=== PATIENT | male | born 1955 | race Caucasian/White ===

== ENCOUNTER 2018-08-27 18:13 | Outpatient (REF) | payer BC, SELFPAY ==
[2018-08-27 19:30] LABS: Anion Gap 8.9 mmol/L (3-11); BUN 16 mg/dL (7-18); CO2 27.1 mmol/L (21.0-32.0); CREATININE 1.09 mg/dL (0.70-1.30); Calcium 9.1 mg/dL (8.5-10.1); Chloride 104 mmol/L (98-107); Cholesterol 136 mg/dL (50-200); Glucose 90 mg/dL (70-100); HDL Cholesterol 30 mg/dL (40-60); LDL CHOLESTEROL 90 mg/dL (<100); Potassium 4.6 mmol/L (3.5-5.1); Sodium 140 mmol/L (136-145); Triglyceride 126 mg/dL (30-150)
== END 2018-08-27 18:33 ==
LOC: NCHCN 18:13
PROVIDERS: PCP Internal Medicine; Visit Provider Internal Medicine
DX: I25.10 Atherosclerotic heart disease of native coronary artery without angina pectoris (principal); I10 Essential (primary) hypertension; Z00.00 Encounter for general adult medical examination without abnormal findings
CPT/HCPCS: 80048; 80061; 83721

== ENCOUNTER 2019-07-27 11:22 | Outpatient (REF) | payer BC, SELFPAY ==
[2019-07-27 21:58] LABS: Anion Gap 9.2 mmol/L (3-11); BUN 14 mg/dL (7-18); CO2 25.8 mmol/L (21.0-32.0); CREATININE 1.15 mg/dL (0.70-1.30); Calcium 8.9 mg/dL (8.5-10.1); Chloride 104 mmol/L (98-107); Glucose 120 mg/dL (70-100); Potassium 4.6 mmol/L (3.5-5.1); Sodium 139 mmol/L (136-145)
== END 2019-07-27 11:42 ==
LOC: NCHCN 11:22
PROVIDERS: PCP Internal Medicine; Visit Provider Internal Medicine
DX: I10 Essential (primary) hypertension (principal)
CPT/HCPCS: 80048

== ENCOUNTER 2019-11-18 09:17 | Outpatient (REF) | payer OTHER, SELFPAY ==
[2019-11-18 21:47] LABS: Anion Gap 9.4 mmol/L (3-11); BUN 18 mg/dL (7-18); CO2 28.6 mmol/L (21.0-32.0); CREATININE 1.11 mg/dL (0.70-1.30); Calcium 9.3 mg/dL (8.5-10.1); Chloride 103 mmol/L (98-107); Glucose 100 mg/dL (74-106); Potassium 4.4 mmol/L (3.5-5.1); Sodium 141 mmol/L (136-145)
== END 2019-11-18 09:37 ==
LOC: NCHCN 09:17
PROVIDERS: PCP Internal Medicine; Visit Provider Internal Medicine
DX: I10 Essential (primary) hypertension (principal); I25.10 Atherosclerotic heart disease of native coronary artery without angina pectoris
CPT/HCPCS: 80048

== ENCOUNTER 2019-12-28 08:14 | Outpatient (REF) | payer OTHER, SELFPAY ==
[2019-12-28 21:03] LABS: Anion Gap 7.5 mmol/L (3-11); BUN 18 mg/dL (7-18); CO2 29.5 mmol/L (21.0-32.0); CREATININE 1.21 mg/dL (0.70-1.30); Calcium 9.7 mg/dL (8.5-10.1); Chloride 103 mmol/L (98-107); Glucose 105 mg/dL (74-106); Potassium 4.3 mmol/L (3.5-5.1); Sodium 140 mmol/L (136-145)
== END 2019-12-28 08:34 ==
LOC: NCHCN 08:14
PROVIDERS: PCP Internal Medicine; Visit Provider Internal Medicine
DX: I10 Essential (primary) hypertension (principal)
CPT/HCPCS: 80048

== ENCOUNTER 2020-09-19 12:35 | Outpatient (REF) | payer OTHER, SELFPAY ==
[2020-09-19 21:54] LABS: Uric Acid 8.8 mg/dL (3.5-7.2)
== END 2020-09-19 12:55 ==
LOC: NCHCN 12:35
PROVIDERS: PCP Internal Medicine; Visit Provider Internal Medicine
DX: M10.9 Gout, unspecified (principal)
CPT/HCPCS: 84550

== ENCOUNTER 2020-12-19 07:40 | Outpatient (REF) | payer OTHER, SELFPAY ==
[2020-12-19 15:28] LABS: Anion Gap 12.8 mmol/L (3-11); BUN 13 mg/dL (7-18); CO2 24.2 mmol/L (21.0-32.0); CREATININE 1.1 mg/dL (0.70-1.30); Calcium 8.8 mg/dL (8.5-10.1); Calculated LDL 94 mg/dL (<100); Chloride 105 mmol/L (98-107); Cholesterol 164 mg/dL (<200); Glucose 116 mg/dL (74-106); HDL Cholesterol 31 mg/dL (40-60); Potassium 4.1 mmol/L (3.5-5.1); Sodium 142 mmol/L (136-145); Triglyceride 199 mg/dL (<150)
== END 2020-12-19 07:41 | disposition home or self-care (01) ==
LOC: NCHCN 07:40
PROVIDERS: PCP Internal Medicine; Visit Provider Internal Medicine
DX: I10 Essential (primary) hypertension (principal); E78.5 Hyperlipidemia, unspecified; M10.9 Gout, unspecified
CPT/HCPCS: 80048; 80061; 84550

== ENCOUNTER 2021-06-30 20:33 | Outpatient (REF) | payer OTHER, SELFPAY ==
[2021-06-30 15:16] LABS: ALT 38 U/L (16-63); AST 22 U/L (15-37); Albumin 3.9 g/dL (3.4-5.0); Alkaline Phosphatase 96 U/L (46-116); Anion Gap 7.6 mmol/L (3-11); BUN 18 mg/dL (7-18); Bilirubin, Total 0.6 mg/dL (0.2-1.0); CO2 26.4 mmol/L (21.0-32.0); CREATININE 1.1 mg/dL (0.70-1.30); Calcium 8.9 mg/dL (8.5-10.1); Chloride 107 mmol/L (98-107); Glucose 100 mg/dL (74-106); Potassium 4.5 mmol/L (3.5-5.1); Sodium 141 mmol/L (136-145)
[2021-06-30 15:20] LABS: Hemoglobin A1C 5.9 % (<5.7)
== END 2021-06-30 20:34 | disposition home or self-care (01) ==
LOC: NCHCN 20:33
PROVIDERS: PCP Internal Medicine; Visit Provider Internal Medicine
DX: R73.01 Impaired fasting glucose (principal); I10 Essential (primary) hypertension
CPT/HCPCS: 80053; 83036

== ENCOUNTER 2021-08-28 07:42 | Day surgery (SDC) | payer MEDICARE, SELFPAY ==
[2021-08-28] VITALS (7 sets, daily range): BP systolic 106–156; BP diastolic 54–86; PULSE 47–54; RESP 12–20; TEMP 36.2–36.8; O2SAT 94–98; BMI 30.7
[2021-08-28 07:57] LABS: Source Nasal/Nares
[2021-08-28 08:49] LABS: COVID-19 PCR Negative (Negative)
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
--- NOTE | 2021-08-28 09:15 | W.PM.DSUDISC ---
Discharge Plan Disposition Patient Disposition: HOME Condition: Good Discharge Details Attending Provider: Berry Rudolph Primary Care Provider: Lizzie Brady Home Meds and New Rx's Prescriptions: No Action allopurinol 100 mg tablet 100 mg PO DAILY RF: 0 metoprolol succinate [Toprol XL] 50 mg tablet extended release 24 hr 50 mg PO DAILY RF: 0 amlodipine 10 mg tablet 10 mg PO DAILY RF: 0 lisinopril 20 mg tablet 20 mg PO DAILY RF: 0 atorvastatin 20 mg tablet 20 mg PO DAILY RF: 0 omeprazole 20 mg capsule,delayed release(DR/EC) 20 mg PO DAILY RF: 0 colchicine 0.6 mg tablet 0.6 mg PO DAILY RF: 0 aspirin [Aspir-81] 81 mg Tablet,Delayed Release (Dr/Ec) 81 mg PO DAILY RF: 0 Discharge Instructions Additional Instructions: Call with any concerns or problems. Do not smoke, shout or whisper. Expect minor bloody streaking in spit/phlegm. No driving or operating dangerous equipment for 72 hours. Call me if you do not hear from me within 1 week with regard to pathology Referrals: Berry Rudolph MD [ [facility]] - (2 weeks, please call for appointment before patient departs) Activity:: see instruction line above Shower/Bathe:: 24 hours Diet:: As Tolerated
[2021-08-28] MEDS: Lactated Ringers 1,000 ML 80 ML IV (09:43)
--- NOTE | 2021-08-28 10:20 | VOCCOR_PTH ---
PATIENT: Reid Boyd JR LOC: [facility] U#:[id number] AGE/SX: 65/M ROOM: RE08/28/[address]: Berry Rudolph MD : [id number] BED: DIS: 08/28/2021 SPEC #: [id number] RECD: 08/28/21 13:02 STATUS: KELTON RENancie #: [id number] DEBORA: 08/28/21 10:[address]: Berry Rudolph DEPT: Surgical Specimen RECD BY: Hannah Jackson ENTERED: 08/28/21 13:03 SP TYPE: VOCCOR OTHR DR: Lizzie Brady Tissues: 1 - VOCAL CORD Procedures: GROSS AND MICRO LEVEL 4 Comments: [id number]
--- NOTE | 2021-08-28 10:26 | ROE_ITS ---
Operative Note Operative Note DATE OF PROCEDURE: 08/28/21 PRE-OP DIAGNOSIS: Hoarseness, left vocal cord mass PROCEDURE: Microlaryngoscopy with left vocal cord mass biopsy SURGEON: Berry Rudolph ANESTHESIA TYPE: General LMA/ETT Refer to Anesthesia Record ESTIMATED BLOOD LOSS: 2 PATHOLOGY: other (Left vocal cord biopsy) COMPLICATIONS: None Patient was transported to: PACU Patient's condition: stable Indications: Patient with a left vocal cord mass. Options were explained to the family regarding further management. He elected to undergo the above procedure for diagnosis. He is aware that this would not be curative. Risks and benefits as well as the operative and postoperative courses were reviewed. Questions were answered. He wished to proceed. Findings: Left vocal cord fungating mass, friable in nature, extending to and possibly across the anterior commissure, and extending the length of the vocal cord. No vocal cord paralysis. No secondary lesions. There does appear to be some subglottic extension Procedure Description: After obtaining an adequate level of general endotracheal anesthesia the patient was positioned in a supine position and prepped and draped in appropriate fashion. A [place]inger laryngoscope was carefully introduced into the oral cavity and advanced through the oral cavity, into the oropharynx, and then into the larynx, affording excellent visualization of the left vocal cord mass. The laryngoscope was placed into suspension and a operating microscope with a 400 mm lens was moved into position. Cup forceps were then used to remove several biopsies of the left vocal cord mass. These were placed in formalin and sent to pathology. After ensuring adequate hemostasis, the Ho linger laryngoscope was removed and the patient was awakened and by anesthesia and taken to recovery room in stable condition. I was present throughout the entire case.
--- NOTE | 2021-08-28 11:04 | W.ANESPOSTOP ---
Postoperative Evaluation Date, Time and Location Date Performed: 08/28/21 Time Performed: 11:04 Patient Location: PACU Vital Signs Most Recent Imported Vital Signs: Most Recent Vital Signs Temp Pulse Resp BP Pulse Ox 36.8 C 47 L 12 114/66 94 08/28/21 11:01 08/28/21 11:01 08/28/21 11:01 08/28/21 11:01 08/28/21 11:01 Pain Score Most Recent Pain Score: Most Recent Pain Score Pain Level 0 08/28/21 09:14 Assessment Mental Status: Awake (Alert & Oriented to Patient Baseline) Airway and Respiratory Function: Patent airway with normal (patient baseline) respiratory exam Cardiovascular Function: Hemodynamically Stable Hydration Status: Adequately Hydrated Nausea & Vomiting: No Nausea or Vomiting Pain: Pt. Denies Any Pain Peripheral Nerve Block: Patient did not receive a nerve block
== END 2021-08-28 11:48 | disposition home or self-care (01) ==
PROVIDERS: PCP Internal Medicine; Visit Provider Otolaryngology
PROC: 0CJS8ZZ Inspection of Larynx, Via Natural or Artificial Opening Endoscopic (ICD-10-PCS; CPT 31575; principal; 2021-08-28 09:45)
DX: R49.0 Dysphonia (principal)
CPT/HCPCS: 31536; 87635; 88305; J1100; J2405; J2704

== ENCOUNTER 2021-09-11 01:05 | Outpatient (CLI) | payer MEDICARE, SELFPAY ==
[2021-09-11] MEDS: Omnipaque 350 MG/ML 100 ML BTL IJ (11:27)
--- NOTE | 2021-09-11 11:35 | DI.CT_ITS ---
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 TECHNIQUE: Imaging Protocol: Axial CT angiography was performed with multi-slice acquisition and mu lti-planar and/or 3D reconstructions. CONTRAST MATERIAL: Intravenous: Omnipaque 350 Contrast volume:100 mL COMPARISON: No exams were available for comparison FINDINGS: Visualized paranasal sinuses: Mild mucosal thickening in the floor left maxillary sinus. No associat ed fluid level. Sphenoid sinuses and ethmoidal air cells are clear as are the visualized frontal sin uses left side (right frontal sinuses not developed). Mastoid air cells are well aerated. Nasopharynx: Unremarkable Oropharynx: Calcified tonsilliths. There is a 6 x 5 millimeter hypoechoic area region of right tonsi l, possibly small abscess at this level. No regional adenopathy. No retropharyngeal abscess. Hypopharynx: Right vallecula filled mucus. Left valleculae unremarkable. Larynx: Asymmetry on the left side of larynx, anteriorly. This most probably corresponds to the lesi on. Subglottic airway appears unremarkable. Thyroid gland: Normal size. Small calcification noted in the left thyroid lobe. Parotid/submandibular glands: Parotid glands unremarkable. The left submandibular gland is slightly larger than the right but without obvious mass. Lymph nodes: No gross lymphadenopathy in the neck. IMPRESSION: 1. Asymmetric density noted in the anterior left vocal cord, most probably corresponding to the lesio ns described. No obvious lymphadenopathy. 2. Right tonsil area findings as above. May represent small abscess. 3. RADIATION DOSE DELIVERED: 580.95mGy.cm Total DLP DATA REPOSITORY: All CT scans at this facility are submitted to the National Radiology Data Registry (NRDR) Dose Index Registry (DIR) with the [employer] (ACR). RADIATION OPTIMIZATION: All CT scans at this facility use at least one of these dose optimization te chniques: automated exposure control; mA and/or kV adjustment per patient size (includes targeted exa ms where dose is matched to clinical indication); or iterative reconstruction.
== END 2021-09-11 01:25 ==
LOC: DI 01:05
PROVIDERS: PCP Internal Medicine; Visit Provider Otolaryngology
DX: C32.0 Malignant neoplasm of glottis (principal); R93.89 Abnormal findings on diagnostic imaging of other specified body structures
CPT/HCPCS: 70491; 82565; J3490

== ENCOUNTER 2021-09-28 08:18 | Outpatient (REF) | payer MEDICARE, SELFPAY ==
[2021-09-28 14:53] LABS: Calculated LDL 107 mg/dL (<100); Cholesterol 184 mg/dL (<200); HDL Cholesterol 34 mg/dL (40-60); Triglyceride 216 mg/dL (<150)
[2021-09-28 15:03] LABS: Uric Acid 5.7 mg/dL (3.5-7.2)
[2021-09-29 09:23] LABS: PSA, Screening 0.6 ng/mL (0.0-4.5)
== END 2021-09-28 08:19 | disposition home or self-care (01) ==
LOC: NCHCN 08:18
PROVIDERS: PCP Internal Medicine; Visit Provider Internal Medicine
DX: E78.5 Hyperlipidemia, unspecified (principal); M10.9 Gout, unspecified; Z12.5 Encounter for screening for malignant neoplasm of prostate
CPT/HCPCS: 80061; 84153; 84550

== ENCOUNTER 2021-10-31 04:16 | Outpatient (CLI) | payer MEDICARE, SELFPAY ==
[2021-10-31 11:23] LABS: CREATININE 1.1 mg/dL (0.70-1.30)
== END 2021-10-31 04:17 | disposition home or self-care (01) ==
LOC: LBO 04:16
PROVIDERS: PCP Internal Medicine; Visit Provider Preventive Medicine Undersea and Hyperbaric Medicine
DX: C32.9 Malignant neoplasm of larynx, unspecified (principal)
CPT/HCPCS: 36415; 82565

== ENCOUNTER 2021-12-04 01:23 | Outpatient (RCR) | payer MEDICARE, SELFPAY ==
[2021-11-13] MEDS: Normal Saline Flush 10 ML SYR IVP (12:44)
[2021-11-13] MEDS: Heparin 500 UNITS/5 ML SYRINGE IV (12:45)
[2021-11-13 12:49] LABS: Abs Immature Grans 0.03 10^3/uL (0.0-0.06); Absolute Basophil Count 0.06 10^3/uL (0.0-0.2); Absolute Eosinophil Count 0.24 10^3/uL (0.0-0.7); Absolute Monocyte Count 0.83 10^3/uL (0.1-0.8); Basophils % 0.6; Eosinophils % 2.5; HCT 43.3 % (40.0-50.0); HGB 14.5 g/dL (13.5-17.5); Immature Grans % 0.3; Lymphocytes % 25.6; MCH 30.3 pg (27.0-33.0); MCHC 33.5 % (32.0-36.0); MCV 90.4 fL (80-95); MPV 9.7 fL (8.0-11.0); Monocytes % 8.5; Neutrophils % 62.5; Nucleated RBC 0 %; Platelet Count 283 10^3/uL (130-400); RBC 4.79 10^6/uL (4.36-5.78); RDW 14.1 % (11.8-14.1); RDW-SD 47.5 fL; WBC 9.76 10^3/uL (4.4-10.8)
[2021-11-13 13:02] LABS: ALT 56 U/L (16-63); AST 28 U/L (15-37); Albumin 3.7 g/dL (3.4-5.0); Alkaline Phosphatase 88 U/L (46-116); Anion Gap 9.4 mmol/L (3-11); BUN 14 mg/dL (7-18); Bilirubin, Total 0.6 mg/dL (0.2-1.0); CO2 24.6 mmol/L (21.0-32.0); Calcium 8.1 mg/dL (8.5-10.1); Chloride 106 mmol/L (98-107); Glucose 97 mg/dL (74-106); Magnesium 1.8 mg/dL (1.8-2.4); Potassium 3.8 mmol/L (3.5-5.1); Sodium 140 mmol/L (136-145)
[2021-11-20] MEDS: Normal Saline Flush 10 ML SYR IVP (07:34)
[2021-11-20 07:46] LABS: Abs Immature Grans 0.06 10^3/uL (0.0-0.06); Absolute Basophil Count 0.07 10^3/uL (0.0-0.2); Absolute Eosinophil Count 0.37 10^3/uL (0.0-0.7); Absolute Lymphocyte Count 2.63 10^3/uL (1.2-3.4); Basophils % 0.6; Eosinophils % 3.2; HGB 14.2 g/dL (13.5-17.5); Immature Grans % 0.5; Lymphocytes % 22.6; MCH 30.7 pg (27.0-33.0); MCHC 33.8 % (32.0-36.0); MCV 90.9 fL (80-95); MPV 9.5 fL (8.0-11.0); Monocytes % 10.7; Neutrophils % 62.4; Nucleated RBC 0 %; Platelet Count 294 10^3/uL (130-400); RBC 4.62 10^6/uL (4.36-5.78); RDW 14.3 % (11.8-14.1); RDW-SD 47.8 fL; WBC 11.64 10^3/uL (4.4-10.8)
[2021-11-20 07:48] LABS: Absolute Monocyte Count 1.25 10^3/uL (0.1-0.8); Absolute Neutrophil Count 7.26 10^3/uL (1.2-6.7)
[2021-11-20 07:58] LABS: ALT 73 U/L (16-63); AST 31 U/L (15-37); Albumin 3.6 g/dL (3.4-5.0); Alkaline Phosphatase 89 U/L (46-116); Anion Gap 7.2 mmol/L (3-11); BUN 15 mg/dL (7-18); Bilirubin, Total 0.5 mg/dL (0.2-1.0); CO2 28.8 mmol/L (21.0-32.0); CREATININE 1.1 mg/dL (0.70-1.30); Calcium 8.5 mg/dL (8.5-10.1); Chloride 103 mmol/L (98-107); Glucose 99 mg/dL (74-106); Magnesium 2.1 mg/dL (1.8-2.4); Potassium 4.2 mmol/L (3.5-5.1); Sodium 139 mmol/L (136-145); Total Protein 6.6 g/dL (6.4-8.2)
[2021-11-27] MEDS: Normal Saline Flush 10 ML SYR IVP (08:06)
[2021-11-27 08:07] LABS: Abs Immature Grans 0.06 10^3/uL (0.0-0.06); Absolute Basophil Count 0.03 10^3/uL (0.0-0.2); Absolute Eosinophil Count 0.21 10^3/uL (0.0-0.7); Absolute Lymphocyte Count 1.29 10^3/uL (1.2-3.4); Absolute Monocyte Count 0.81 10^3/uL (0.1-0.8); Basophils % 0.3; Eosinophils % 2.1; HCT 41.3 % (40.0-50.0); HGB 13.9 g/dL (13.5-17.5); Immature Grans % 0.6; MCH 30.3 pg (27.0-33.0); MCHC 33.7 % (32.0-36.0); MCV 90.2 fL (80-95); MPV 9.4 fL (8.0-11.0); Monocytes % 8.2; Neutrophils % 75.8; Nucleated RBC 0 %; Platelet Count 235 10^3/uL (130-400); RBC 4.58 10^6/uL (4.36-5.78); RDW 14.4 % (11.8-14.1); RDW-SD 46.5 fL
[2021-11-27 08:20] LABS: ALT 83 U/L (16-63); AST 28 U/L (15-37); Albumin 3.5 g/dL (3.4-5.0); Alkaline Phosphatase 85 U/L (46-116); BUN 17 mg/dL (7-18); Bilirubin, Total 0.4 mg/dL (0.2-1.0); Calcium 8.6 mg/dL (8.5-10.1); Chloride 104 mmol/L (98-107); Glucose 113 mg/dL (74-106); Magnesium 1.9 mg/dL (1.8-2.4); Potassium 4.4 mmol/L (3.5-5.1); Sodium 138 mmol/L (136-145); Total Protein 6.5 g/dL (6.4-8.2)
[2021-12-04] MEDS: Normal Saline Flush 10 ML SYR IVP (07:43)
[2021-12-04 08:13] LABS: Abs Immature Grans 0.03 10^3/uL (0.0-0.06); Absolute Basophil Count 0.05 10^3/uL (0.0-0.2); Absolute Eosinophil Count 0.12 10^3/uL (0.0-0.7); Absolute Monocyte Count 0.75 10^3/uL (0.1-0.8); Absolute Neutrophil Count 4.95 10^3/uL (1.2-6.7); Basophils % 0.7; Eosinophils % 1.7; HCT 40.7 % (40.0-50.0); HGB 13.6 g/dL (13.5-17.5); Immature Grans % 0.4; Lymphocytes % 14.5; MCH 30.7 pg (27.0-33.0); MCHC 33.4 % (32.0-36.0); MCV 91.9 fL (80-95); MPV 9.3 fL (8.0-11.0); Monocytes % 10.9; Neutrophils % 71.8; Nucleated RBC 0 %; Platelet Count 211 10^3/uL (130-400); RBC 4.43 10^6/uL (4.36-5.78); RDW 14.6 % (11.8-14.1); RDW-SD 48.3 fL
[2021-12-04 08:46] LABS: ALT 75 U/L (16-63); AST 24 U/L (15-37); Albumin 3.6 g/dL (3.4-5.0); Alkaline Phosphatase 78 U/L (46-116); BUN 20 mg/dL (7-18); Bilirubin, Total 0.5 mg/dL (0.2-1.0); Calcium 8.7 mg/dL (8.5-10.1); Chloride 103 mmol/L (98-107); Glucose 109 mg/dL (74-106); Magnesium 2.1 mg/dL (1.8-2.4); Potassium 4.3 mmol/L (3.5-5.1); Sodium 137 mmol/L (136-145); Total Protein 6.8 g/dL (6.4-8.2)
== END 2021-12-04 23:59 | disposition home or self-care (01) ==
LOC: INF 01:23
PROVIDERS: Internal Medicine Hematology & Oncology; PCP Internal Medicine; Visit Provider Nurse Practitioner Family
DX: C32.9 Malignant neoplasm of larynx, unspecified (principal); Z45.2 Encounter for adjustment and management of vascular access device
CPT/HCPCS: 36591; 80053; 83735; 85025

== ENCOUNTER 2021-12-25 02:27 | Outpatient (RCR) | payer MEDICARE, SELFPAY ==
[2021-12-11] MEDS: Normal Saline Flush 10 ML SYR IVP (08:30)
[2021-12-11 08:40] LABS: Abs Immature Grans 0.01 10^3/uL (0.0-0.06); Absolute Basophil Count 0.02 10^3/uL (0.0-0.2); Absolute Eosinophil Count 0.12 10^3/uL (0.0-0.7); Absolute Lymphocyte Count 0.72 10^3/uL (1.2-3.4); Absolute Monocyte Count 0.51 10^3/uL (0.1-0.8); Absolute Neutrophil Count 3.54 10^3/uL (1.2-6.7); Basophils % 0.4; Eosinophils % 2.4; HCT 36.7 % (40.0-50.0); HGB 12.6 g/dL (13.5-17.5); Immature Grans % 0.2; Lymphocytes % 14.6; MCH 31.2 pg (27.0-33.0); MCHC 34.3 % (32.0-36.0); MCV 90.8 fL (80-95); MPV 8.9 fL (8.0-11.0); Monocytes % 10.4; Nucleated RBC 0 %; Platelet Count 150 10^3/uL (130-400); RBC 4.04 10^6/uL (4.36-5.78); RDW 14.6 % (11.8-14.1); WBC 4.92 10^3/uL (4.4-10.8)
[2021-12-11 09:00] LABS: ALT 67 U/L (16-63); AST 24 U/L (15-37); Albumin 3.6 g/dL (3.4-5.0); Alkaline Phosphatase 81 U/L (46-116); Anion Gap 8.9 mmol/L (3-11); BUN 18 mg/dL (7-18); Bilirubin, Total 0.5 mg/dL (0.2-1.0); CO2 27.1 mmol/L (21.0-32.0); CREATININE 1.1 mg/dL (0.70-1.30); Calcium 8.7 mg/dL (8.5-10.1); Chloride 104 mmol/L (98-107); Glucose 104 mg/dL (74-106); Magnesium 2.1 mg/dL (1.8-2.4); Potassium 4.3 mmol/L (3.5-5.1); Sodium 140 mmol/L (136-145); Total Protein 6.7 g/dL (6.4-8.2)
[2021-12-18 08:42] LABS: Abs Immature Grans 0.02 10^3/uL (0.0-0.06); Absolute Basophil Count 0.01 10^3/uL (0.0-0.2); Absolute Eosinophil Count 0.06 10^3/uL (0.0-0.7); Absolute Lymphocyte Count 0.56 10^3/uL (1.2-3.4); Absolute Neutrophil Count 2.43 10^3/uL (1.2-6.7); Basophils % 0.3; Eosinophils % 1.7; HCT 36.8 % (40.0-50.0); HGB 12.5 g/dL (13.5-17.5); Immature Grans % 0.6; Lymphocytes % 16.1; MCH 30.9 pg (27.0-33.0); MCV 91.1 fL (80-95); MPV 8.7 fL (8.0-11.0); Monocytes % 11.5; Neutrophils % 69.8; Nucleated RBC 0 %; Platelet Count 144 10^3/uL (130-400); RBC 4.04 10^6/uL (4.36-5.78); RDW 14.5 % (11.8-14.1); RDW-SD 46.9 fL; WBC 3.48 10^3/uL (4.4-10.8)
[2021-12-18] MEDS: Normal Saline Flush 10 ML SYR IVP (08:44)
[2021-12-18 09:02] LABS: ALT 85 U/L (16-63); AST 30 U/L (15-37); Albumin 3.6 g/dL (3.4-5.0); Alkaline Phosphatase 79 U/L (46-116); Anion Gap 7.8 mmol/L (3-11); BUN 17 mg/dL (7-18); Bilirubin, Total 0.5 mg/dL (0.2-1.0); CO2 28.2 mmol/L (21.0-32.0); CREATININE 1.1 mg/dL (0.70-1.30); Calcium 8.4 mg/dL (8.5-10.1); Chloride 101 mmol/L (98-107); Glucose 100 mg/dL (74-106); Magnesium 1.8 mg/dL (1.8-2.4); Potassium 4.1 mmol/L (3.5-5.1); Sodium 137 mmol/L (136-145); Total Protein 6.8 g/dL (6.4-8.2)
[2021-12-25] MEDS: Normal Saline Flush 10 ML SYR IVP (09:00)
[2021-12-25 09:19] LABS: Abs Immature Grans 0.02 10^3/uL (0.0-0.06); Absolute Basophil Count 0.02 10^3/uL (0.0-0.2); Absolute Eosinophil Count 0.03 10^3/uL (0.0-0.7); Absolute Lymphocyte Count 0.39 10^3/uL (1.2-3.4); Absolute Monocyte Count 0.43 10^3/uL (0.1-0.8); Absolute Neutrophil Count 1.84 10^3/uL (1.2-6.7); Basophils % 0.7; Eosinophils % 1.1; HCT 35.2 % (40.0-50.0); HGB 11.9 g/dL (13.5-17.5); Immature Grans % 0.7; Lymphocytes % 14.3; MCH 31.5 pg (27.0-33.0); MCHC 33.8 % (32.0-36.0); MCV 93.1 fL (80-95); MPV 8.7 fL (8.0-11.0); Monocytes % 15.8; Neutrophils % 67.4; Nucleated RBC 0 %; Platelet Count 163 10^3/uL (130-400); RBC 3.78 10^6/uL (4.36-5.78); RDW 14.7 % (11.8-14.1); RDW-SD 48.4 fL; WBC 2.73 10^3/uL (4.4-10.8)
[2021-12-25 09:31] LABS: ALT 115 U/L (16-63); AST 37 U/L (15-37); Albumin 3.7 g/dL (3.4-5.0); Alkaline Phosphatase 86 U/L (46-116); Anion Gap 8.4 mmol/L (3-11); BUN 23 mg/dL (7-18); Bilirubin, Total 0.4 mg/dL (0.2-1.0); CO2 26.6 mmol/L (21.0-32.0); CREATININE 1.3 mg/dL (0.70-1.30); Calcium 8.6 mg/dL (8.5-10.1); Chloride 105 mmol/L (98-107); Glucose 100 mg/dL (74-106); Potassium 4.3 mmol/L (3.5-5.1); Sodium 140 mmol/L (136-145); Total Protein 6.7 g/dL (6.4-8.2)
== END 2022-01-04 23:59 | disposition home or self-care (01) ==
LOC: INF 02:27
PROVIDERS: Internal Medicine Hematology & Oncology; PCP Internal Medicine; Visit Provider Nurse Practitioner Family
DX: C32.9 Malignant neoplasm of larynx, unspecified (principal); Z45.2 Encounter for adjustment and management of vascular access device
CPT/HCPCS: 36591; 80053; 83735; 85025

== ENCOUNTER 2022-01-19 00:41 | Outpatient (RCR) | payer MEDICARE, SELFPAY ==
[2022-01-05] MEDS: Normal Saline Flush 10 ML SYR IVP (09:51)
[2022-01-05 09:58] LABS: Abs Immature Grans 0.03 10^3/uL (0.0-0.06); Absolute Basophil Count 0.04 10^3/uL (0.0-0.2); Absolute Eosinophil Count 0.01 10^3/uL (0.0-0.7); Absolute Monocyte Count 0.53 10^3/uL (0.1-0.8); Absolute Neutrophil Count 4.18 10^3/uL (1.2-6.7); Basophils % 0.8; Eosinophils % 0.2; HCT 32.3 % (40.0-50.0); HGB 11.1 g/dL (13.5-17.5); Immature Grans % 0.6; Lymphocytes % 7.7; MCHC 34.4 % (32.0-36.0); MCV 93.1 fL (80-95); MPV 8.8 fL (8.0-11.0); Monocytes % 10.2; Neutrophils % 80.5; Nucleated RBC 0 %; Platelet Count 148 10^3/uL (130-400); RBC 3.47 10^6/uL (4.36-5.78); RDW 16.3 % (11.8-14.1); RDW-SD 52.2 fL; WBC 5.19 10^3/uL (4.4-10.8)
[2022-01-05 10:11] LABS: ALT 165 U/L (16-63); AST 53 U/L (15-37); Albumin 3.5 g/dL (3.4-5.0); Alkaline Phosphatase 83 U/L (46-116); Anion Gap 11.6 mmol/L (3-11); BUN 24 mg/dL (7-18); Bilirubin, Total 0.3 mg/dL (0.2-1.0); CO2 25.4 mmol/L (21.0-32.0); CREATININE 1.4 mg/dL (0.70-1.30); Calcium 8.4 mg/dL (8.5-10.1); Chloride 105 mmol/L (98-107); Glucose 131 mg/dL (74-106); Magnesium 1.5 mg/dL (1.8-2.4); Potassium 3.4 mmol/L (3.5-5.1); Sodium 142 mmol/L (136-145); Total Protein 6.4 g/dL (6.4-8.2)
[2022-01-15] MEDS: Normal Saline Flush 10 ML SYR IVP (11:31)
[2022-01-15 11:52] LABS: ALT 118 U/L (16-63); AST 32 U/L (15-37); Albumin 3.5 g/dL (3.4-5.0); Alkaline Phosphatase 95 U/L (46-116); Anion Gap 8.5 mmol/L (3-11); BUN 19 mg/dL (7-18); Bilirubin, Total 0.4 mg/dL (0.2-1.0); CO2 27.5 mmol/L (21.0-32.0); Calcium 8.6 mg/dL (8.5-10.1); Chloride 103 mmol/L (98-107); Glucose 93 mg/dL (74-106); Magnesium 1.7 mg/dL (1.8-2.4); Potassium 3.7 mmol/L (3.5-5.1); Sodium 139 mmol/L (136-145); Total Protein 6.6 g/dL (6.4-8.2)
[2022-01-19 10:44] LABS: Abs Immature Grans 0.01 10^3/uL (0.0-0.06); Absolute Basophil Count 0.02 10^3/uL (0.0-0.2); Absolute Eosinophil Count 0.08 10^3/uL (0.0-0.7); Absolute Lymphocyte Count 0.53 10^3/uL (1.2-3.4); Absolute Neutrophil Count 2.55 10^3/uL (1.2-6.7); Basophils % 0.5; Eosinophils % 2.1; HCT 30.9 % (40.0-50.0); HGB 10.7 g/dL (13.5-17.5); Immature Grans % 0.3; MCH 32.1 pg (27.0-33.0); MCHC 34.6 % (32.0-36.0); MCV 92.8 fL (80-95); MPV 8.8 fL (8.0-11.0); Monocytes % 15.8; Neutrophils % 67.3; Platelet Count 157 10^3/uL (130-400); RBC 3.33 10^6/uL (4.36-5.78); RDW 18.8 % (11.8-14.1); RDW-SD 62.3 fL; WBC 3.79 10^3/uL (4.4-10.8)
[2022-01-19 10:57] LABS: ALT 113 U/L (16-63); AST 46 U/L (15-37); Albumin 3.5 g/dL (3.4-5.0); Alkaline Phosphatase 108 U/L (46-116); Anion Gap 9.6 mmol/L (3-11); BUN 21 mg/dL (7-18); Bilirubin, Total 0.4 mg/dL (0.2-1.0); CO2 25.4 mmol/L (21.0-32.0); Calcium 8.2 mg/dL (8.5-10.1); Chloride 106 mmol/L (98-107); Glucose 111 mg/dL (74-106); Magnesium 1.3 mg/dL (1.8-2.4); Potassium 3.6 mmol/L (3.5-5.1); Sodium 141 mmol/L (136-145); Total Protein 6.5 g/dL (6.4-8.2)
[2022-01-19] MEDS: Normal Saline Flush 10 ML SYR IVP (16:49)
== END 2022-02-03 23:59 | disposition home or self-care (01) ==
LOC: INF 00:41
PROVIDERS: Internal Medicine Hematology & Oncology; PCP Internal Medicine; Visit Provider Nurse Practitioner Family
DX: C32.9 Malignant neoplasm of larynx, unspecified (principal); Z45.2 Encounter for adjustment and management of vascular access device
CPT/HCPCS: 36591; 80053; 83735; 85025

== ENCOUNTER 2022-02-12 01:06 | Outpatient (RCR) | payer MEDICARE, SELFPAY ==
[2022-02-12] MEDS: Heparin 500 UNITS/5 ML SYRINGE IV (13:28)
[2022-02-12] MEDS: Normal Saline Flush 10 ML SYR IVP (13:28)
[2022-02-12 13:48] LABS: Abs Immature Grans 0.02 10^3/uL (0.0-0.06); Absolute Basophil Count 0.05 10^3/uL (0.0-0.2); Absolute Eosinophil Count 0.14 10^3/uL (0.0-0.7); Absolute Lymphocyte Count 0.98 10^3/uL (1.2-3.4); Absolute Monocyte Count 0.71 10^3/uL (0.1-0.8); Absolute Neutrophil Count 2.68 10^3/uL (1.2-6.7); Basophils % 1.1; Eosinophils % 3.1; HCT 32.6 % (40.0-50.0); Immature Grans % 0.4; Lymphocytes % 21.4; MCH 33.4 pg (27.0-33.0); MCHC 33.7 % (32.0-36.0); MCV 99 fL (80-95); MPV 9.4 fL (8.0-11.0); Monocytes % 15.5; Neutrophils % 58.5; Platelet Count 251 10^3/uL (130-400); RBC 3.29 10^6/uL (4.36-5.78); RDW 20.6 % (11.8-14.1); RDW-SD 73.1 fL; WBC 4.58 10^3/uL (4.4-10.8)
[2022-02-12 13:52] LABS: ALT 42 U/L (16-63); AST 18 U/L (15-37); Albumin 3.5 g/dL (3.4-5.0); Alkaline Phosphatase 109 U/L (46-116); Anion Gap 7.7 mmol/L (3-11); BUN 17 mg/dL (7-18); Bilirubin, Total 0.3 mg/dL (0.2-1.0); CO2 25.3 mmol/L (21.0-32.0); CREATININE 1.1 mg/dL (0.70-1.30); Calcium 8.2 mg/dL (8.5-10.1); Chloride 107 mmol/L (98-107); Glucose 112 mg/dL (74-106); Magnesium 1.6 mg/dL (1.8-2.4); Potassium 3.8 mmol/L (3.5-5.1); Sodium 140 mmol/L (136-145); Total Protein 6.8 g/dL (6.4-8.2)
[2022-02-12 13:57] LABS: Anisocytosis 2+; Diff Comment RBC Morph Reviewed
== END 2022-03-06 23:59 | disposition home or self-care (01) ==
LOC: INF 01:06
PROVIDERS: Internal Medicine Hematology & Oncology; PCP Internal Medicine; Visit Provider Nurse Practitioner Family
DX: C32.9 Malignant neoplasm of larynx, unspecified (principal); Z45.2 Encounter for adjustment and management of vascular access device
CPT/HCPCS: 36591; 80053; 83735; 85025

== ENCOUNTER 2022-03-02 01:29 | Outpatient (CLI) | payer MEDICARE, SELFPAY ==
[2022-03-02 11:56] LABS: Source Nasal/Nares
[2022-03-02 14:42] LABS: COVID-19 PCR Negative (Negative)
== END 2022-03-02 01:30 | disposition home or self-care (01) ==
LOC: LBO 01:29
PROVIDERS: Otolaryngology; PCP Internal Medicine; Visit Provider Speech-Language Pathologist
DX: Z20.822 Contact with and (suspected) exposure to COVID-19 (principal); Z01.818 Encounter for other preprocedural examination
CPT/HCPCS: 87635; U0005

== ENCOUNTER → 2022-03-06 01:41 | Outpatient (CLI) | payer MEDICARE, SELFPAY ==
--- NOTE | 2022-03-06 10:30 | DI.RAD_ITS ---
Exam(s) RF MODIFIED SPEECH BA SWALLOW TECHNIQUE: Modified barium swallow was performed in conjunction with speech pathology. CONTRAST MATERIAL: Oral barium Oral water soluble contrast was administered. COMPARISON: No exams were available for comparison FINDINGS: Note that this is not a dedicated esophagram, distal esophagus not evaluated. There is no evidence of aspiration or penetration of thick or thin liquids, barium coated apple sauce , cottage cheese or cookies. Speech pathology report to follow. . . . IMPRESSION: No evidence of aspiration or penetration. RADIATION DOSE DELIVERED: ann Burger=14.9 mGy Total fluoroscopy time 1 minutes 26 seconds
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
[2022-03-06] MEDS: Barium Sulfate 700 MG TAB PO (11:15)
[2022-03-06] MEDS: Barium Sulfate 81% w/w for Oral Suspension 148 GM BTL PO (11:15)
== END ==
PROVIDERS: PCP Internal Medicine; Visit Provider Speech-Language Pathologist
DX: C32.9 Malignant neoplasm of larynx, unspecified (principal)
CPT/HCPCS: 92526; 74221

== ENCOUNTER 2022-07-09 04:45 | Outpatient (CLI) | payer MEDICARE, SELFPAY ==
[2022-07-09 10:36] LABS: Abs Immature Grans 0.02 10^3/uL (0.0-0.06); Absolute Basophil Count 0.05 10^3/uL (0.0-0.2); Absolute Eosinophil Count 0.29 10^3/uL (0.0-0.7); Absolute Lymphocyte Count 1.35 10^3/uL (1.2-3.4); Absolute Monocyte Count 0.71 10^3/uL (0.1-0.8); Absolute Neutrophil Count 3.84 10^3/uL (1.2-6.7); Basophils % 0.8; Eosinophils % 4.6; HCT 38.4 % (40.0-50.0); Immature Grans % 0.3; Lymphocytes % 21.6; MCH 31.4 pg (27.0-33.0); MCHC 33.9 % (32.0-36.0); MCV 93 fL (80-95); MPV 9.2 fL (8.0-11.0); Monocytes % 11.3; Neutrophils % 61.4; Platelet Count 248 10^3/uL (130-400); RBC 4.14 10^6/uL (4.36-5.78); RDW 14.3 % (11.8-14.1); RDW-SD 48.6 fL; WBC 6.26 10^3/uL (4.4-10.8)
[2022-07-09 11:43] LABS: ALT 33 U/L (16-63); AST 22 U/L (15-37); Albumin 3.9 g/dL (3.4-5.0); Alkaline Phosphatase 109 U/L (46-116); Anion Gap 8.2 mmol/L (3-11); BUN 22 mg/dL (7-18); Bilirubin, Total 0.8 mg/dL (0.2-1.0); CO2 25.8 mmol/L (21.0-32.0); CREATININE 1.2 mg/dL (0.70-1.30); Calcium 9.1 mg/dL (8.5-10.1); Chloride 104 mmol/L (98-107); Estimated GFR 65.87 (mL/min/1.73m2); Glucose 104 mg/dL (74-106); Magnesium 1.9 mg/dL (1.8-2.4); Potassium 4.4 mmol/L (3.5-5.1); Sodium 138 mmol/L (136-145); TSH 11.28 uIU/mL (0.36-3.74); Total Protein 7.4 g/dL (6.4-8.2)
== END 2022-07-09 04:46 | disposition home or self-care (01) ==
LOC: LBO 04:45
PROVIDERS: PCP Internal Medicine; Visit Provider Internal Medicine Hematology & Oncology
DX: C32.0 Malignant neoplasm of glottis (principal); E83.42 Hypomagnesemia; I10 Essential (primary) hypertension
CPT/HCPCS: 36415; 80053; 83735; 84443; 85025

== ENCOUNTER 2022-10-29 02:52 | Outpatient (CLI) | payer MEDICARE, SELFPAY ==
[2022-10-29 11:48] LABS: Abs Immature Grans 0.02 10^3/uL (0.0-0.06); Absolute Basophil Count 0.06 10^3/uL (0.0-0.2); Absolute Eosinophil Count 0.14 10^3/uL (0.0-0.7); Absolute Lymphocyte Count 1.25 10^3/uL (1.2-3.4); Absolute Monocyte Count 0.71 10^3/uL (0.1-0.8); Absolute Neutrophil Count 4.15 10^3/uL (1.2-6.7); Basophils % 0.9; Eosinophils % 2.2; HCT 39.7 % (40.0-50.0); HGB 13.6 g/dL (13.5-17.5); Immature Grans % 0.3; Lymphocytes % 19.7; MCH 32.5 pg (27.0-33.0); MCHC 34.3 % (32.0-36.0); MCV 95 fL (80-95); MPV 9.2 fL (8.0-11.0); Monocytes % 11.2; Neutrophils % 65.7; Platelet Count 244 10^3/uL (130-400); RBC 4.18 10^6/uL (4.36-5.78); RDW 13.5 % (11.8-14.1); RDW-SD 47.4 fL; WBC 6.33 10^3/uL (4.4-10.8)
[2022-10-29 12:29] LABS: ALT 46 U/L (16-63); AST 26 U/L (15-37); Alkaline Phosphatase 80 U/L (46-116); Anion Gap 8.3 mmol/L (3-11); BUN 20 mg/dL (7-18); Bilirubin, Total 0.5 mg/dL (0.2-1.0); CO2 26.7 mmol/L (21.0-32.0); CREATININE 1.3 mg/dL (0.70-1.30); Calcium 9.3 mg/dL (8.5-10.1); Chloride 106 mmol/L (98-107); Estimated GFR 59.47 (mL/min/1.73m2); Glucose 105 mg/dL (74-106); Magnesium 1.8 mg/dL (1.8-2.4); Potassium 4.7 mmol/L (3.5-5.1); Sodium 141 mmol/L (136-145); TSH 6.03 uIU/mL (0.36-3.74); Total Protein 7.1 g/dL (6.4-8.2)
== END 2022-10-29 02:53 | disposition home or self-care (01) ==
PROVIDERS: PCP Internal Medicine; Visit Provider Internal Medicine Hematology & Oncology
DX: C32.0 Malignant neoplasm of glottis (principal); E83.42 Hypomagnesemia; Z79.899 Other long term (current) drug therapy; I10 Essential (primary) hypertension
CPT/HCPCS: 36415; 80053; 83735; 84443; 85025

== ENCOUNTER 2022-12-17 02:03 | Outpatient (CLI) | payer MEDICARE, SELFPAY ==
[2022-12-17 14:30] LABS: CREATININE 1.2 mg/dL (0.70-1.30); Estimated GFR 65.46 (mL/min/1.73m2)
[2022-12-17] MEDS: Normal Saline - Diluent 50 ML VIAL IJ (14:52)
[2022-12-17] MEDS: Omnipaque 350 MG/ML 500 ML BTL-Imaging package IJ (14:53)
--- NOTE | 2022-12-17 15:00 | DI.CT_ITS ---
Exam(s) CT NECK CHEST W EXAM: CT NECK CHEST W CLINICAL HISTORY: SCC OF LT VOCAL CORD, C32.0, ASSESS TX RESPONSE S/P CHEMOTHERAPY. TECHNIQUE: Imaging Protocol: Axial computed tomography images with coronal and sagittal reformatted images were created and reviewed. CONTRAST MATERIAL: Intravenous: Contrast Contrast volume:structured data in mlmL COMPARISON: CT CT NECK W from 09/11/2021 FINDINGS: Orbits and orbital soft tissues: Within normal limits. Visualized paranasal sinuses: Within normal limits. Nasopharynx: Within normal limits. Oropharynx: Within normal limits. Hypopharynx: Within normal limits. Larynx: There has been significant decrease in size of the focal cords since 09/11/2021. They have a normal configuration. No evidence of a recurrent mass is seen at this time. Retropharyngeal space: Within normal limits. Parotids/submandibular: Within normal limits. Thyroid gland: Within normal limits. Lymphadenopathy: There is scattered lymph nodes seen along the level one to level three all measurin g less than 8 mm in short axis diameter which are physiologic in nature. Trachea: Within normal limits. Bones: Within normal limits for the patient's age. Carotids/Jugular: Within normal limits. Atherosclerosis is present. Soft tissues: Within normal limits. Tracheobronchial tree: Patent where visualized. Pulmonary parenchyma: No consolidation or dominant measurable mass. No architectural distortion. Mediastinum and Emely: There are mildly enlarged lymph nodes seen in the right hilum. The largest elvis sures 1.8 cm. The esophagus is unremarkable. Thyroid gland: Unremarkable. Pleura: No effusion or pneumothorax. Heart: The heart is not dilated. Moderate coronary artery calcification is present. No pericardial e ffusion. Aorta: Thoracic aorta non-dilated. Atherosclerosis is present. There is no dissection present. Pulmonary arteries: The segmental and subsegmental pulmonary arteries are inadequately opacified for evaluation of pulmonary emboli. No central pulmonary embolus is present. Upper abdomen: Unremarkable. Lymph nodes: Within normal limits. Bones: Within normal limits for the patient's age. No aggressive osseous lesions. Soft tissues: Mild gynecomastia. IMPRESSION: 1. Mildly enlarged mediastinal lymph nodes. 2. No pulmonary nodules. 3. No evidence of residual or recurrent vocal cord mass. RADIATION DOSE DELIVERED: 1,503.22mGy.cm Total DLP DATA REPOSITORY: All CT scans at this facility are submitted to the National Radiology Data Registry (NRDR) Dose Index Registry (DIR) with the [employer] (ACR). RADIATION OPTIMIZATION: All CT scans at this facility use at least one of these dose optimization te chniques: automated exposure control; mA and/or kV adjustment per patient size (includes targeted exa ms where dose is matched to clinical indication); or iterative reconstruction.
== END 2022-12-17 02:23 ==
LOC: DI 02:03
PROVIDERS: PCP Internal Medicine; Visit Provider Preventive Medicine Undersea and Hyperbaric Medicine
DX: Z01.812 Encounter for preprocedural laboratory examination (principal); C32.0 Malignant neoplasm of glottis; R59.0 Localized enlarged lymph nodes; Z92.21 Personal history of antineoplastic chemotherapy; Z92.3 Personal history of irradiation
CPT/HCPCS: 70491; 71260; 82565

== ENCOUNTER 2022-12-24 03:56 | Outpatient (CLI) | payer MEDICARE, SELFPAY ==
[2022-12-24 10:07] LABS: Abs Immature Grans 0.02 10^3/uL (0.0-0.06); Absolute Basophil Count 0.05 10^3/uL (0.0-0.2); Absolute Eosinophil Count 0.19 10^3/uL (0.0-0.7); Absolute Lymphocyte Count 1.03 10^3/uL (1.2-3.4); Absolute Monocyte Count 0.56 10^3/uL (0.1-0.8); Absolute Neutrophil Count 3.26 10^3/uL (1.2-6.7); Eosinophils % 3.7; HCT 40.2 % (40.0-50.0); HGB 13.9 g/dL (13.5-17.5); Immature Grans % 0.4; Lymphocytes % 20.2; MCH 31.7 pg (27.0-33.0); MCHC 34.6 % (32.0-36.0); MCV 92 fL (80-95); MPV 8.6 fL (8.0-11.0); Neutrophils % 63.7; Platelet Count 238 10^3/uL (130-400); RBC 4.38 10^6/uL (4.36-5.78); RDW-SD 47.8 fL; WBC 5.11 10^3/uL (4.4-10.8)
[2022-12-24 10:37] LABS: ALT 50 U/L (16-63); AST 23 U/L (15-37); Albumin 3.8 g/dL (3.4-5.0); Alkaline Phosphatase 86 U/L (46-116); Anion Gap 9.3 mmol/L (3-11); BUN 16 mg/dL (7-18); Bilirubin, Total 0.5 mg/dL (0.2-1.0); CO2 25.7 mmol/L (21.0-32.0); CREATININE 1.2 mg/dL (0.70-1.30); Calcium 8.5 mg/dL (8.5-10.1); Chloride 107 mmol/L (98-107); Estimated GFR 65.46 (mL/min/1.73m2); Glucose 122 mg/dL (74-106); Magnesium 1.8 mg/dL (1.8-2.4); Potassium 4.1 mmol/L (3.5-5.1); Sodium 142 mmol/L (136-145); TSH 3.48 uIU/mL (0.36-3.74); Total Protein 6.8 g/dL (6.4-8.2)
== END 2022-12-24 03:57 | disposition home or self-care (01) ==
LOC: LBO 03:56
PROVIDERS: PCP Internal Medicine; Visit Provider Internal Medicine Hematology & Oncology
DX: C32.0 Malignant neoplasm of glottis (principal); E83.42 Hypomagnesemia; I10 Essential (primary) hypertension
CPT/HCPCS: 36415; 80053; 83735; 84443; 85025

== ENCOUNTER 2023-03-21 00:52 | Outpatient (CLI) | payer MEDICARE, SELFPAY ==
--- NOTE | 2023-03-21 | DI.CTLCSR_ITS ---
Exam(s) CT CHEST LUNG CANCER SCREEN EXAM: CT CHEST LUNG CANCER SCREEN CLINICAL HISTORY: FORMER SMOKER Z87.891 SCREENING FOR LUNG CANCER. TECHNIQUE: Imaging Protocol: Low Dose Technique CONTRAST MATERIAL: None COMPARISON: CT CT NECK CHEST W from 12/17/2022 FINDINGS: CHEST: LUNGS: There are no ominous pulmonary nodules. There are no confluent infiltrates. No pleural effusi ons. Mucus is noted in the right wall of the trachea. MEDIASTINUM: There is no obvious new hilar nor new mediastinal adenopathy. CARDIAC: Heart size is normal. There is no pericardial effusion.Caliber of the thoracic aorta is wit hin normal limits. Moderate coronary artery calcification LAD noted. OTHER: OSSEOUS: No significant osseous lesions.No fractures.. IMPRESSION: 1. No significant pulmonary nodules evident. 2. No significant infiltrates nor pleural effusions nor obvious new intrathoracic adenopathy. 3. Lung RADS Cat 1 - Negative: No nodules and definitely benign nodules Lung-RADS 1.0 CATEGORIES: Category 0 - Prior chest CT exam(s) being located for comparison. Category 1 - Annual screening in 12 months. No nodules or definitely benign nodules. Category 2 - Annual screening in 12 months. Benign appearance. Nodules with low likelihood of becomin g active cancer. Category 3 - 6-month follow-up. Probably benign. Short-term follow-up suggested. Nodules with low lik elihood of becoming active cancer. Category 4A - 3-month follow-up and CT/PET if >8 mm in size. Suspicious finding. Findings which requi re additional testing. Category 4B - Findings which require additional testing and tissue sampling. Category 4X - Category 3 or 4 nodules with additional features or imaging findings that increases the suspicion of malignancy. Modifier S- Potentially clinically significant findings (non lung cancer) RADIATION DOSE DELIVERED: 96.39mGy.cm Total DLP DATA REPOSITORY: All CT scans at this facility are submitted to the National Radiology Data Registry (NRDR) Dose Index Registry (DIR) with the [employer] (ACR). RADIATION OPTIMIZATION: All CT scans at this facility use at least one of these dose optimization te chniques: automated exposure control; mA and/or kV adjustment per patient size (includes targeted exa ms where dose is matched to clinical indication); or iterative reconstruction.
== END 2023-03-21 01:12 ==
LOC: DI 00:52
PROVIDERS: PCP Internal Medicine; Visit Provider Internal Medicine
DX: Z87.891 Personal history of nicotine dependence (principal); Z12.2 Encounter for screening for malignant neoplasm of respiratory organs
CPT/HCPCS: 71271

== ENCOUNTER 2023-03-27 10:53 | Outpatient (REF) | payer MEDICARE, SELFPAY ==
[2023-03-27 14:58] LABS: ALT 47 U/L (16-63); AST 35 U/L (15-37); Albumin 4.3 g/dL (3.4-5.0); Alkaline Phosphatase 96 U/L (46-116); Anion Gap 10.1 mmol/L (3-11); BUN 17 mg/dL (7-18); Bilirubin, Total 0.8 mg/dL (0.2-1.0); CO2 24.9 mmol/L (21.0-32.0); CREATININE 1.4 mg/dL (0.70-1.30); Calcium 9.1 mg/dL (8.5-10.1); Chloride 102 mmol/L (98-107); Estimated GFR 54.41 (mL/min/1.73m2); Glucose 104 mg/dL (74-106); Potassium 4.3 mmol/L (3.5-5.1); Sodium 137 mmol/L (136-145); Total Protein 7.7 g/dL (6.4-8.2)
== END 2023-03-27 10:54 | disposition home or self-care (01) ==
LOC: NCHCN 10:53
PROVIDERS: PCP Internal Medicine; Visit Provider Family Medicine
DX: R60.0 Localized edema (principal); Z79.899 Other long term (current) drug therapy
CPT/HCPCS: 80053; 87086

== ENCOUNTER 2023-04-25 17:20 | Outpatient (REF) | payer MEDICARE, SELFPAY ==
[2023-04-25 17:00] LABS: BUN 17 mg/dL (7-18); CREATININE 1.2 mg/dL (0.70-1.30); Calcium 9.2 mg/dL (8.5-10.1); Chloride 104 mmol/L (98-107); Estimated GFR 65.46 (mL/min/1.73m2); Glucose 119 mg/dL (74-106); Potassium 4.2 mmol/L (3.5-5.1); Sodium 139 mmol/L (136-145)
== END 2023-04-25 17:21 | disposition home or self-care (01) ==
LOC: NCHCN 17:20
PROVIDERS: PCP Internal Medicine; Visit Provider Family Medicine
DX: I10 Essential (primary) hypertension (principal); R60.9 Edema, unspecified
CPT/HCPCS: 80048

== ENCOUNTER 2023-07-01 10:51 | Outpatient (CLI) | payer MEDICARE, SELFPAY ==
[2023-07-01 10:26] LABS: TSH 4.65 uIU/mL (0.36-3.74)
== END 2023-07-01 10:52 | disposition home or self-care (01) ==
LOC: LBO 10:52
PROVIDERS: PCP Internal Medicine; Visit Provider Internal Medicine Hematology & Oncology
DX: E03.9 Hypothyroidism, unspecified (principal)
CPT/HCPCS: 36415; 84443

== ENCOUNTER 2023-10-11 02:53 | Outpatient (CLI) | payer MEDICARE, SELFPAY ==
--- OUTSIDE RECORDS SUMMARY | 2023-10-11 02:56 | XMS_ITS | CCD ---
Author Name Unknown Address [address] [place] [address] [id number] Organization Unknown Address [address] [place] [address] [id number] Care Team Providers Care Tree Worker Name Role Phone WHIT HERNANDEZ Attending Physician [phone] Vital Signs Unknown or Not Available. Allergies Allergy Code Allergy Type Reaction Status KEFLEX 209012 Drug allergy Active Procedures Unknown or Not Available. History of Immunizations Unknown or Not Available. 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 Active Medications Medication Code Dose Units Frequency Route Modificatio n Start Date/Time Tessalon Perles 100MG Oral Capsule, Liquid Filled 104580 1 CAPSULE THREE TIMES A DAY ORAL 01/13/2023 21:02 Prescription Detail TAKE 1 CAPSULE ORAL THREE TIMES A DAY Medications Administered During Visit Unknown or Not Available. Encounters Encounter Diagnosis Diagnosis Code Start Date Screening for cardiovascular system disease 3000 34281 09/04/2021 Social History Smoking Status Code Start Date End Date Current every day smoker [id number] Patient Decision Aids Unknown or Not Available. Discharge Instructions You were admitted to [facility] on 09/04/2021 07:59 with a principal diagnosis of Encounter for screening for cardiovascular disorders You were discharged from [facility] on 09/04/2021 07:59 Should you have any questions prior to discharge, please contact a member of your healthcare team. If you have left the hospital and have any questions, please contact your primary care physician. Chief Complaint and Reason For Visit Chief Complaint Date of Onset AAA SCR TOBACCO USE Function Status Unknown or Not Available. Plan of Care Unknown or Not Available. Referral/Transition of Care Unknown or Not Available.
--- OUTSIDE RECORDS SUMMARY | 2023-10-11 02:56 | XMS_ITS | CCD ---
Author Name Unknown Address [address] [place] [address] [id number] Organization Unknown Address [address] [place] [address] [id number] Care Team Providers Care Perfect Binder Setter Name Role Phone LEXA RUBIN Attending Physician [phone] LEXA RUBIN Rounding (Secondary) Physician [phone] Vital Signs Unknown or Not Available. Allergies Allergy Code Allergy Type Reaction Status KEFLEX 651215 Drug allergy Active Procedures Unknown or Not Available. History of Immunizations Unknown or Not Available. Problems Problem Code Start Date Resolved Date Status Throat cancer 161653044 Active Cough 49777121 Active Acute URI 43966834 Active Results Unknown or Not Available. Active Medications Medication Code Dose Units Frequency Route Modificatio n Start Date/Time Tessalon Perles 100MG Oral Capsule, Liquid Filled 385270 1 CAPSULE THREE TIMES A DAY ORAL 01/13/2023 21:02 Prescription Detail TAKE 1 CAPSULE ORAL THREE TIMES A DAY Medications Administered During Visit Unknown or Not Available. Encounters Encounter Diagnosis Diagnosis Code Start Date Encounter for adjustment and management of other cardiac device Z4509 09/26/2021 Social History Smoking Status Code Start Date End Date Current every day smoker [id number] Patient Decision Aids Unknown or Not Available. Discharge Instructions You were admitted to [facility] on 09/26/2021 11:19 with a principal diagnosis of Encounter for adjustment and management of other cardiac device You were discharged from [facility] on 09/26/2021 00:00 Should you have any questions prior to discharge, please contact a member of your healthcare team. If you have left the hospital and have any questions, please contact your primary care physician. Chief Complaint and Reason For Visit Unknown or Not Available. Function Status Unknown or Not Available. Plan of Care Unknown or Not Available. Referral/Transition of Care Unknown or Not Available.
--- OUTSIDE RECORDS SUMMARY | 2023-10-11 02:56 | XMS_ITS | CCD ---
Author Name Unknown Address [address] [place] [address] [id number] Organization Unknown Address [address] [place] [address] [phone] Care Team Providers Care Cdl Driver Name Role Phone LILIANA SHELL Attending Physician [phone] LILIANA SHELL Rounding (Secondary) Physician [phone] Vital Signs Unknown or Not Available. Allergies Allergy Code Allergy Type Reaction Status KEFLEX 445443 Drug allergy Active Procedures Unknown or Not Available. History of Immunizations Unknown or Not Available. Problems Problem Code Start Date Resolved Date Status Throat cancer 884982851 Active Cough 51017509 Active Acute URI 48249139 Active Results Unknown or Not Available. Active Medications Medication Code Dose Units Frequency Route Modificatio n Start Date/Time Tessalon Perles 100MG Oral Capsule, Liquid Filled 579196 1 CAPSULE THREE TIMES A DAY ORAL 01/13/2023 21:02 Prescription Detail TAKE 1 CAPSULE ORAL THREE TIMES A DAY Medications Administered During Visit Unknown or Not Available. Encounters Encounter Diagnosis Diagnosis Code Start Date Essential (primary) hypertension I10 09/07/2021 Social History Smoking Status Code Start Date End Date Current every day smoker 103533919 Patient Decision Aids Unknown or Not Available. Discharge Instructions You were admitted to [facility] on 09/07/2021 14:28 with a principal diagnosis of Essential (primary) hypertension You were discharged from [facility] on 09/07/2021 00:00 Should you have any questions prior [...]
[2023-10-11 14:34] LABS: TSH 4.77 uIU/mL (0.36-3.74)
== END 2023-10-11 02:54 | disposition home or self-care (01) ==
PROVIDERS: PCP Internal Medicine; Visit Provider Preventive Medicine Undersea and Hyperbaric Medicine
DX: C32.0 Malignant neoplasm of glottis (principal); E03.9 Hypothyroidism, unspecified
CPT/HCPCS: 36415; 84443

== ENCOUNTER 2024-01-29 09:54 | Outpatient (REF) | payer MEDICARE, SELFPAY ==
[2024-01-29 14:30] LABS: HCT 46.8 % (40.0-50.0); MCH 31.7 pg (27.0-33.0); MCHC 34.2 % (32.0-36.0); MCV 93 fL (80-95); RBC 5.04 10^6/uL (4.36-5.78); RDW 13.9 % (11.8-14.1); RDW-SD 47.5 fL; WBC 5.73 10^3/uL (4.4-10.8)
[2024-01-29 14:54] LABS: ALT 74 U/L (16-63); AST 36 U/L (15-37); Albumin 4.3 g/dL (3.4-5.0); Alkaline Phosphatase 94 U/L (46-116); Anion Gap 11.5 mmol/L (3-11); BUN 18 mg/dL (7-18); Bilirubin, Total 0.6 mg/dL (0.2-1.0); CO2 25.5 mmol/L (21.0-32.0); CREATININE 1.3 mg/dL (0.70-1.30); Calcium 9.1 mg/dL (8.5-10.1); Chloride 103 mmol/L (98-107); Glucose 123 mg/dL (74-106); Potassium 4.4 mmol/L (3.5-5.1); Sodium 140 mmol/L (136-145); Total Protein 7.4 g/dL (6.4-8.2); Uric Acid 8.2 mg/dL (3.5-7.2)
[2024-01-29 16:00] LABS: Hemoglobin A1C 6.4 % (<5.7)
[2024-01-30 18:57] LABS: Calculated LDL 91 mg/dL (<100); Cholesterol 191 mg/dL (<200); HDL Cholesterol 38 mg/dL (40-60); Triglyceride 312 mg/dL (<150)
== END 2024-01-29 09:55 | disposition home or self-care (01) ==
LOC: NCHCN 09:54
PROVIDERS: PCP Internal Medicine; Visit Provider Internal Medicine
DX: R73.03 Prediabetes (principal); E78.1 Pure hyperglyceridemia; M10.9 Gout, unspecified; E66.8 Other obesity
CPT/HCPCS: 80053; 80061; 85027; 83036; 84550

== ENCOUNTER 2024-04-15 16:30 | Outpatient (REF) | payer MEDICARE, SELFPAY ==
[2024-04-15 16:15] LABS: Hemoglobin A1C 6.1 % (<5.7)
[2024-04-15 16:35] LABS: ALT 54 U/L (16-63); AST 35 U/L (15-37); Alkaline Phosphatase 78 U/L (46-116); Anion Gap 7.7 mmol/L (3-11); BUN 15 mg/dL (7-18); Bilirubin, Total 0.76 mg/dL (0.2-1.0); CO2 27.3 mmol/L (21.0-32.0); CREATININE 1.2 mg/dL (0.70-1.30); Chloride 105 mmol/L (98-107); Estimated GFR 65.06 (mL/min/1.73m2); Glucose 121 mg/dL (74-106); Potassium 4.3 mmol/L (3.5-5.1); Sodium 140 mmol/L (136-145); Total Protein 7.3 g/dL (6.4-8.2); Uric Acid 7.7 mg/dL (3.5-7.2)
[2024-04-16 10:33] LABS: Hepatitis C Ab w Rflx HCV PCR Negative (Negative)
== END 2024-04-15 16:31 | disposition home or self-care (01) ==
LOC: NCHCN 16:30
PROVIDERS: PCP Internal Medicine; Visit Provider Internal Medicine
DX: R73.03 Prediabetes (principal); E79.0 Hyperuricemia without signs of inflammatory arthritis and tophaceous disease; R74.8 Abnormal levels of other serum enzymes
CPT/HCPCS: 80053; 86803; 83036; 84550

== ENCOUNTER 2024-07-02 02:24 | Outpatient (CLI) | payer MEDICARE, SELFPAY ==
--- NOTE | 2024-07-02 09:10 | DI.CTLCSR_ITS ---
Exam(s) CT CHEST LUNG CANCER SCREEN EXAM: CT CHEST LUNG CANCER SCREEN CLINICAL HISTORY: PERS HX NICOTINE DEPENDENCE Z87.891 SCREENING LUNG CANCER TECHNIQUE: Imaging Protocol: Axial computed tomography images with coronal and sagittal reformatted images were created and reviewed COMPARISON: CT CT NECK CHEST W from 12/17/[address] CHEST LUNG CANCER SCREEN from 03/21/2023 FINDINGS: Tracheobronchial tree: Patent where visualized. No bronchiectasis. Pulmonary parenchyma: No consolidation or dominant measurable mass. No architectural distortion. Ther e is a calcified granuloma in the right upper lobe. Lung Nodules: No noncalcified pulmonary nodules. Mediastinum and Emely: No dominant adenopathy or fluid collection. The esophagus is unremarkable. Lymph nodes: Unremarkable. Pleura: No effusion or pneumothorax. Heart: The heart is not dilated. Three vessel coronary artery calcification is present. No pericardi al effusion. Aorta: Thoracic aorta non-dilated.Atherosclerotic calcification is present. Upper abdomen: Unremarkable. Soft Tissues: Unremarkable. Bones: Within normal limits. IMPRESSION: No suspicious pulmonary nodules. Lung RADS Cat 1 - Negative: No nodules and definitely benign nodules Lung-RADS 1.0 CATEGORIES: Category 0 - Prior chest CT exam(s) being located for comparison. Category 1 - Annual screening in 12 months. No nodules or definitely benign nodules. Category 2 - Annual screening in 12 months. Benign appearance. Nodules with low likelihood of becomin g active cancer. Category 3 - 6-month follow-up. Probably benign. Short-term follow-up suggested. Nodules with low lik elihood of becoming active cancer. Category 4A - 3-month follow-up and CT/PET if >8 mm in size. Suspicious finding. Findings which requi re additional testing. Category 4B - Findings which require additional testing and tissue sampling. Suspicious finding. Category 4X - Category 3 or 4 nodules with additional features or imaging findings that increases the suspicion of malignancy. Modifier S- Potentially clinically significant finding. (Non lung cancer) RADIATION DOSE DELIVERED: 116.88mGy.cm Total DLP 116.88mGy.cmTotal DLP DATA REPOSITORY: All CT scans at this facility are submitted to the National Radiology Data Registry (NRDR) Dose Index Registry (DIR) with the [employer] (ACR). RADIATION OPTIMIZATION: All CT scans at this facility use at least one of these dose optimization te chniques: automated exposure control; mA and/or kV adjustment per patient size (includes targeted exa ms where dose is matched to clinical indication); or iterative reconstruction.
== END 2024-07-02 02:44 ==
LOC: DI 02:24
PROVIDERS: PCP Internal Medicine; Visit Provider Internal Medicine
DX: Z87.891 Personal history of nicotine dependence (principal); Z12.2 Encounter for screening for malignant neoplasm of respiratory organs
CPT/HCPCS: 71271

== ENCOUNTER 2025-02-01 18:51 | Outpatient (REF) | payer MEDICARE, SELFPAY ==
[2025-02-01 16:07] LABS: HCT 44.7 % (40.0-50.0); HGB 15.2 g/dL (13.5-17.5); MCH 32.5 pg (27.0-33.0); MCV 96 fL (80-95); MPV 11.4 fL (8.0-11.0); Platelet Count 166 10^3/uL (130-400); RBC 4.67 10^6/uL (4.36-5.78); RDW 15.2 % (11.8-14.1); RDW-SD 53.9 fL; WBC 6.58 10^3/uL (4.4-10.8)
[2025-02-01 16:49] LABS: Hemoglobin A1C 6.2 % (<5.7)
[2025-02-01 17:19] LABS: ALT 64 U/L (16-63); AST 38 U/L (15-37); Albumin 4.1 g/dL (3.4-5.0); Alkaline Phosphatase 87 U/L (46-116); Anion Gap 11.2 mmol/L (3-11); BUN 16 mg/dL (7-18); Bilirubin, Total 0.9 mg/dL (0.2-1.0); CO2 25.8 mmol/L (21.0-32.0); CREATININE 1.1 mg/dL (0.70-1.30); Calcium 9.5 mg/dL (8.5-10.1); Calculated LDL 83 mg/dL (<100); Chloride 105 mmol/L (98-107); Cholesterol 181 mg/dL (<200); Estimated GFR 71.77 (mL/min/1.73m2); Glucose 120 mg/dL (74-106); HDL Cholesterol 41 mg/dL (>or=40); Potassium 4.2 mmol/L (3.5-5.1); Sodium 142 mmol/L (136-145); Total Protein 7.5 g/dL (6.4-8.2); Triglyceride 285 mg/dL (<150)
== END 2025-02-01 18:52 | disposition home or self-care (01) ==
LOC: NCHCN 18:51
PROVIDERS: PCP Internal Medicine; Visit Provider Internal Medicine
DX: I10 Essential (primary) hypertension (principal); R73.03 Prediabetes; E78.5 Hyperlipidemia, unspecified
CPT/HCPCS: 80053; 80061; 85027; 83036

== ENCOUNTER 2025-02-03 10:31 | Outpatient (REF) | payer MEDICARE, SELFPAY ==
[2025-02-03 16:37] LABS: TSH 5.41 uIU/mL (0.36-3.74)
== END 2025-02-03 10:32 | disposition home or self-care (01) ==
LOC: NCHCN 10:31
PROVIDERS: PCP Internal Medicine; Visit Provider Internal Medicine
DX: E03.9 Hypothyroidism, unspecified (principal)
CPT/HCPCS: 84443

== ENCOUNTER 2025-04-21 18:57 | Outpatient (REF) | payer MEDICARE, SELFPAY ==
[2025-04-21 23:08] LABS: Calculated LDL 70 mg/dL (<100); Cholesterol 140 mg/dL (<200); HDL Cholesterol 36 mg/dL (>or=40); TSH 2.56 uIU/mL (0.36-3.74); Triglyceride 171 mg/dL (<150)
[2025-04-21 23:52] LABS: Uric Acid 7.1 mg/dL (3.5-7.2)
== END 2025-04-21 18:58 | disposition home or self-care (01) ==
LOC: NCHCN 18:57
PROVIDERS: PCP Internal Medicine; Visit Provider Internal Medicine
DX: E03.9 Hypothyroidism, unspecified (principal); I25.10 Atherosclerotic heart disease of native coronary artery without angina pectoris; M10.9 Gout, unspecified
CPT/HCPCS: 80061; 84443; 84550

== ENCOUNTER 2025-05-12 10:39 | Outpatient (CLI) | payer MEDICARE, SELFPAY ==
--- NOTE | 2025-05-12 08:30 | DI.RAD_ITS ---
Exam(s) XR KNEE LT 2V AP,LAT EXAM: XR KNEE LT 2V AP,LAT CLINICAL HISTORY: LEFT KNEE INJURY. TECHNIQUE: 2D digital imaging was performed of the left knee. Two images were obtained. AP and lateral views were obtained. COMPARISON: MR MR LOWER EXT ANY JOINT LT WO CONTRAST from 04/13/2025 FINDINGS: BONES: There is again seen an acute for displaced fracture involving the fibular head. No bony destructive lesion is seen. JOINTS: The knee is normally aligned. There is a joint effusion present. On the lateral view, there are at least 2 densities in the anterior joint space anterior to the tibial spines which may represent loose bodies. SOFT TISSUE: Atherosclerotic calcification is present. IMPRESSION: 1. Displaced fracture of the fibular head. 2. At least 2 densities are seen anterior to the tibial spines on the lateral view which may represent loose bodies or fracture fragments. 3. Joint effusion. DATA REPOSITORY: RADIATION DOSE DELIVERED:
== END 2025-05-12 10:40 | disposition home or self-care (01) ==
LOC: DIORS 10:40
PROVIDERS: PCP Internal Medicine; Referring Provider Internal Medicine; Visit Provider Student in an Organized Health Care Education/Training Program
DX: M25.562 Pain in left knee (principal); S83.512A Sprain of anterior cruciate ligament of left knee, initial encounter; S83.522A Sprain of posterior cruciate ligament of left knee, initial encounter; S83.422A Sprain of lateral collateral ligament of left knee, initial encounter; S82.832A Other fracture of upper and lower end of left fibula, initial encounter for closed fracture; S84.12XA Injury of peroneal nerve at lower leg level, left leg, initial encounter; M21.372 Foot drop, left foot; W17.89XA Other fall from one level to another, initial encounter
CPT/HCPCS: 99215; 73560

== ENCOUNTER → 2025-05-18 11:02 | Outpatient (BNVA) | payer MEDICARE, SELFPAY | PROVIDERS: PCP Internal Medicine; Referring Provider Internal Medicine; Visit Provider Student in an Organized Health Care Education/Training Program | DX: S83.512A Sprain of anterior cruciate ligament of left knee, initial encounter (principal); S83.522A Sprain of posterior cruciate ligament of left knee, initial encounter; S83.422A Sprain of lateral collateral ligament of left knee, initial encounter; S82.832A Other fracture of upper and lower end of left fibula, initial encounter for closed fracture; S84.12XA Injury of peroneal nerve at lower leg level, left leg, initial encounter; M21.372 Foot drop, left foot; W17.89XA Other fall from one level to another, initial encounter | CPT/HCPCS: 99215 ==

== ENCOUNTER 2025-05-21 08:15 | Day surgery (SDC) | payer MEDICARE, SELFPAY ==
[2025-05-21] VITALS (27 sets, daily range): BP systolic 103–136; BP diastolic 43–75; PULSE 55–92; RESP 11–24; TEMP 36.3–36.9; O2SAT 91–98; BMI 35.6
--- NOTE | 2025-05-21 07:15 | W.PM.OP ---
Operative Note Operative Note PRE-OP DIAGNOSIS: Left knee 1. Complete ACL rupture 2. Complete PCL rupture 3. Subacute proximal fibula fracture/posterolateral corner avulsion 4. Dense peroneal nerve palsy 5. Medial meniscus tear POST-OP DIAGNOSIS: same PROCEDURE: Left knee 1. Proximal fibula fracture/posterior lateral corner repair, CPT # 54342 2. Common peroneal nerve exploration and decompression, CPT # 28250 SURGEON: Moshe Hassan MAINTENANCE LEADER: Radha Garcia ANESTHESIA TYPE: Local By Surgeon and General LMA/ETT Refer to Anesthesia Record ESTIMATED BLOOD LOSS: 20 PATHOLOGY: none sent TOURNIQUET TIME: 0 Patient was transported to: PACU Patient's condition: stable Implants: Arthrex 5.5 mm bio composite swivel lock anchor Indications: Please see complete medical record for details. Findings: Exam under anesthesia: Range of motion easily full extension to deep flexion 120 degrees. Positive posterior tibial sag, positive anterior drawer and Abril, positive varus stress in extension and mild flexion, stable valgus stress. Foot and ankle supple. Open findings: Intact common peroneal nerve without any significant injury, but somewhat flattened and compressed about the proximal fibula. Likely bruised about the lateral gastrocnemius injury. Early contraction and healing proximal fibula avulsion fracture in displaced position. Intact biceps femoris and LCL to the bony fragment. Intact iliotibial band to Hortensia's tubercle. Procedure Description: In the operating room, general anesthesia was induced. The patient was positioned supine on the operating room table. All bony prominences were well-padded. Preoperative antibiotics were administered. The knee was prepped and draped in the usual sterile fashion. The correct patient, procedure, and side of the procedure were all verified prior to incision. Exam under anesthesia was performed. 40 cc of 0.25% bupivacaine containing epinephrine was infiltrated about the planned posterolateral longitudinal knee incision, which included the proximal fibula and the distal posterolateral thigh. The knee was approached in mild varus and moderate flexion to reduce tension on this area. Skin was incised, IT band was exposed and split centered over the palpable proximal fibular fracture. IT band split was extended proximally and distally as needed for exposure. The LCL was readily identified, confirmed you have intact to the lateral epicondyle with direct traction, and used to identify the bony avulsion fragment and surrounding structures starting with the biceps femoris and more posteriorly and proximally the peroneal nerve. The peroneal was palpated bluntly proximal in the lateral gastrocnemius injury. Despite the surrounding bruised tissue, it was possibly mildly bruised, but in no way looked bad. It was carefully freed up from proximal to the gastroc injury following up bluntly into the thigh and distally along its course wrapping around the proximal fibula. Tenotomy scissors, Metzenbaum scissors, Woodlawn, and gentle blunt retraction and mobilization was used. About the proximal fibular fracture the nerve was rather taut and kinked likely relating to the displaced fracture retracting the biceps femoris and other tissues drawing the nerve away from its more rigid attachment around the bone. It was very nicely freed and mobilized proximally, about the zone of injury and proximal fibula and bluntly with the Woodlawn and scissors confirmed more distally into the anterior lateral leg ensuring very gentle manipulation and mobilization. The nerve was lay more posteriorly away from the fibular fracture repair next. Biceps femoris, LCL, proximal fibular fracture was identified and freed of early scarring and bone healing about the fracture site. It had somewhat limited excursion, which was not totally unexpected given the subacute nature of this injury to reduce to the proximal fibula. Both sides of the bone were prepared with a rongeur to optimize and fresh bone healing. The fracture could be mobilized with it soft tissue and ligamentous attachments near to the prepared bony bed avulsion site. There was limited space for multiple anchors and with the intact surrounding tissue suture anchor repair was thought to be best. A single 5.5 mm SwiveLock anchor was placed into the central fracture bed proximal fibula with excellent bony fixation strength somewhat countersunk into good bone. It had been loaded with a tiger tape, FiberTape, suture tape, and was double loaded with sliding #2 FiberWire's for the repairs. The peroneal nerve was confirmed to be well posterior and out of the repair site and a free needle was used to shuttle repair sutures deeply starting with the FiberTape's through the biceps femoris posteriorly about the fracture fragment and then centrally anteriorly about the fracture fragment biceps femoris as well in a horizontal mattress fashion. The suture tapes are then shuttled around the fragment more anteriorly into the LCL. Starting posteriorly the FiberTape's and then suture tapes were tied with as much compression as reasonable reducing partially the bone, ligament, and tendinous structures to the proximal fibula, but it was impossible to completely reduce the gap. The sliding FiberWires were then shuttled more superficially horizontal mattress and the LCL and biceps femoris and tied down securing the more superficial layer repair closing over the fracture area. There was good tissue hold of the proximal fibula bone and surrounding structures. The peroneal nerve was nicely mobilized posteriorly and not under tension or kinked as a part of the. Varus exam was improved, but not solid although the repaired structures were well held in place without displacement. The wound was copiously irrigated with normal saline. Hemostasis was appropriate. An additional 20 cc of 0.25 bupivacaine and epinephrine was infiltrated about the muscle and subcutaneous layers avoiding the peroneal nerve. The peroneal nerve was confirmed to be still free and mobile through moderate flexion extension. The IT band split was closed using suture tape interrupted and running. Subcutaneous layers were copiously irrigated.Subcutaneous tissue was closed in 2-0 Monocryl interrupted. Skin was closed 3-0 Monocryl running subcuticular. Mastisol, Steri-Strips, and 4 x 4 gauze were applied over the incision. The knee was then wrapped gently with an HARRY comressive bandage. The patient awoke from anesthesia without complication and was transferred to the recovery room in a stable condition. Date of Procedure: 05/21/25
--- NOTE | 2025-05-21 07:16 | W.PM.DSUDISC ---
Date of service: 05/21/25 Discharge Plan Disposition Patient Disposition: Home Condition: Stable Discharge Details Attending Provider: Moshe Hassan Primary Care Provider: Lizzie Brady Home Meds and New Rx's Prescriptions: New aspirin 81 mg capsule 81 mg PO BID 30 Days Qty: 60 0RF naproxen 250 mg tablet 250 mg PO BID PRN (Reason: moderate pain and swelling) Qty: 20 0RF Rx Instructions: take with a meal tramadol 50 mg tablet 50 mg PO Q8H PRN (Reason: severe pain) Qty: 9 0RF Continued gabapentin 300 mg capsule 300 mg PO QHS Qty: 90 0RF allopurinol 100 mg tablet 100 mg PO DAILY metoprolol succinate [Toprol XL] 50 mg tablet extended release 24 hr 50 mg PO DAILY lisinopril 20 mg tablet 20 mg PO DAILY omeprazole 20 mg capsule,delayed release(DR/EC) 20 mg PO DAILY colchicine 0.6 mg tablet 0.6 mg PO DAILY acetaminophen 500 mg capsule 500 mg PO Q6H PRN hydrochlorothiazide 25 mg tablet 25 mg PO DAILY sildenafil [Viagra] 100 mg tablet 100 mg PO DAILY PRN Rx Instructions: administer 30 minutes to 4 hours before activity amlodipine 5 mg tablet 5 mg PO DAILY atorvastatin [Lipitor] 40 mg tablet 40 mg PO QHS ezetimibe 10 mg tablet 10 mg PO DAILY levothyroxine 112 mcg capsule 112 mcg PO DAILY AFO BRACE 1 ea miscellaneous ONCE Qty: 1 0RF levothyroxine 88 mcg tablet 88 mcg PO DAILY Patient Comments: TAKE ONE TABLET BY MOUTH EVERY DAY allopurinol 300 mg tablet 300 mg PO DAILY Patient Comments: TAKE ONE TABLET BY MOUTH EVERY DAY Discontinued aspirin 81 mg Tablet,Delayed Release (Dr/Ec) 81 mg PO DAILY Discharge Instructions Additional Instructions: Surgery: Left knee open proximal fibula/posterior lateral corner repair and peroneal nerve exploration/neurolysis 05/21/25; Complete ACL and PCL tears, medial meniscus tear 03/29/25 Activity: Protected weightbearing with crutches for 6-8 weeks. Gently advance range of motion as comfort allows. Use knee brace to protect knee when ambulatory. Avoid any side?to?side stress on the knee. Avoid crossing legs or resting injured ankle on your other knee (avoid varus stress on the repair for 3 months). Keep working on ankle dorsiflexion. Obtain AFO brace as soon as it is available to prevent foot drop. Physical therapy will be sent to start in about 3 weeks. Prescriptions: Aspirin 81 mg take 1 twice daily for 30 days, starting tomorrow morning Naproxen 250 mg take 1 every 12 hours with a meal as needed for moderate pain Tramadol 50 mg take 1 every 8 hours as needed for severe pain You may use [id number] Tylenol (acetaminophen) as needed for mild pain. These pain medications may be taken all at once or in different combinations as needed. Also, recommend Colace (docusate) as a stool softener as surgery and pain medicine cause constipation. You may try [id number]-[id number] diphenhydramine (Benadryl) 25-50 mg nightly as a sleep aid Dressings: Leave dressing in place for 5 days. May then remove and leave open to air or cover incisions with Band-Aids. Leave the sticky Steri-Strips in place until they fall off or remove them after you shower. May shower after 7 days. Do not soak underwater. Follow-up: 10-[address] Hassan You may take off the leg compression stockings this evening at home. You may also leave them on a few days longer if you have a history of leg swelling or edema. Let us know right away if you develop any redness, drainage, fevers, chest pain, or trouble breathing. Do not drink alcohol or drive for at least 24 hours after anesthesia. Please call the office during business hours with any questions or concerns. Discharge Orders Discharge Orders: Discharge Order (Routine); Ordered 05/21/25 Ordered By: Radha Garcia DS: Diagnosis Discharge Diagnosis (1) Left peroneal nerve injury: Status: Acute (2) Tear of lateral collateral ligament of left knee: Status: Acute (3) Fracture of left proximal fibula: Status: Acute
[2025-05-21] MEDS: Lactated Ringers 1,000 ML 30 ML IV ×2 (09:30→14:11)
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
[2025-05-21] MEDS: ceFAZolin 3,000 MG in Normal Saline 100 ML 200 MG IV (10:20)
[2025-05-21] MEDS: TRANEXAMIC ACID/SOD. CHL. 1,000 MG/100 ML BAG 600 MG IVPB (10:30)
[2025-05-21] MEDS: Bupivacaine 0.25% Pres-Free W/EPI 30 ML VIAL (10:36)
[2025-05-21] MEDS: fentaNYL 100 MCG/2 ML VIAL IVP ×3 (13:51→14:03)
--- NOTE | 2025-05-21 14:27 | W.ANESPOSTOP ---
Postoperative Evaluation Date, Time and Location Date Performed: 05/21/25 Time Performed: 14:27 Patient Location: PACU Vital Signs Most Recent Imported Vital Signs: Most Recent Vital Signs Temp Pulse Resp BP Pulse Ox 36.5 C 57 L 14 116/65 98 05/21/25 14:06 05/21/25 14:10 05/21/25 14:10 05/21/25 14:06 05/21/25 14:10 Pain Score Most Recent Pain Score: Most Recent Pain Score Pain Level 1 05/21/25 14:21 Assessment Mental Status: Awake (Alert & Oriented to Patient Baseline) Airway and Respiratory Function: Patent airway with normal (patient baseline) respiratory exam Cardiovascular Function: Hemodynamically Stable Hydration Status: Adequately Hydrated Nausea & Vomiting: No Nausea or Vomiting Pain: Pain is tolerable per patient Peripheral Nerve Block: Patient did not receive a nerve block
== END 2025-05-21 15:45 | disposition home or self-care (01) ==
LOC: SUR 08:15
PROVIDERS: PCP Internal Medicine; Visit Provider Student in an Organized Health Care Education/Training Program
PROC: (CPT 27425; principal; 2025-05-21 09:00)
DX: S84.12XA Injury of peroneal nerve at lower leg level, left leg, initial encounter (principal); S83.422A Sprain of lateral collateral ligament of left knee, initial encounter; S82.832A Other fracture of upper and lower end of left fibula, initial encounter for closed fracture; X58.XXXA Exposure to other specified factors, initial encounter
CPT/HCPCS: 64722; 27784; J0131; J0690; J1100; J1885; J2003; J2405; J2704; J3010

== ENCOUNTER 2025-06-01 14:52 | Outpatient (CLI) | payer MEDICARE, SELFPAY ==
--- NOTE | 2025-06-01 13:30 | DI.RAD_ITS ---
Exam(s) XR KNEE LT 2V AP,LAT EXAM: XR KNEE LT 2V AP,LAT CLINICAL HISTORY: F/U FRACTURE. TECHNIQUE: 2D digital imaging was performed of the left knee. Two images were obtained. AP and lateralAP, lateral and PA tunnel views were obtained. COMPARISON: CR XR KNEE LT 2V AP,LAT from 05/12/2025 FINDINGS: BONES: There is again seen a proximally displaced fracture involving the fibular head. No bony destructive lesion is seen. JOINTS: The knee is normally aligned. The densities anterior to the tibial spines are again seen on the lateral view. There is a small joint effusion. No loose body. SOFT TISSUE: Atherosclerotic calcification is present. IMPRESSION: 1. There is again seen a proximally displaced fracture involving the fibular head. 2. The densities seen anterior to the tibial spines are still visualized. DATA REPOSITORY: RADIATION DOSE DELIVERED:
== END 2025-06-01 14:53 | disposition home or self-care (01) ==
LOC: DIORS 14:52
PROVIDERS: PCP Internal Medicine; Referring Provider Internal Medicine; Visit Provider Student in an Organized Health Care Education/Training Program
DX: S82.832D Other fracture of upper and lower end of left fibula, subsequent encounter for closed fracture with routine healing (principal); S83.422D Sprain of lateral collateral ligament of left knee, subsequent encounter; S84.12XD Injury of peroneal nerve at lower leg level, left leg, subsequent encounter; S83.512D Sprain of anterior cruciate ligament of left knee, subsequent encounter; S83.522D Sprain of posterior cruciate ligament of left knee, subsequent encounter; M21.372 Foot drop, left foot; X58.XXXD Exposure to other specified factors, subsequent encounter
CPT/HCPCS: 99024; 73560

== ENCOUNTER → 2025-07-13 13:08 | Outpatient (BNVA) | payer MEDICARE, SELFPAY | PROVIDERS: PCP Internal Medicine; Referring Provider Internal Medicine; Visit Provider Student in an Organized Health Care Education/Training Program | DX: Z47.89 Encounter for other orthopedic aftercare (principal); S83.422D Sprain of lateral collateral ligament of left knee, subsequent encounter; M21.372 Foot drop, left foot; S82.832D Other fracture of upper and lower end of left fibula, subsequent encounter for closed fracture with routine healing; S83.522D Sprain of posterior cruciate ligament of left knee, subsequent encounter; S83.512D Sprain of anterior cruciate ligament of left knee, subsequent encounter; X58.XXXD Exposure to other specified factors, subsequent encounter | CPT/HCPCS: 99024 ==

== ENCOUNTER → 2025-08-24 09:08 | Outpatient (CLI) | payer MEDICARE, SELFPAY ==
--- NOTE | 2025-08-24 | DI.CTLCSR_ITS ---
Exam(s) CT CHEST LUNG CANCER SCREEN EXAM: CT CHEST LUNG CANCER SCREEN CLINICAL HISTORY: FORMER SMOKER, Z87.891, PERSONAL HX NICOTINE DEPENDENCE TECHNIQUE: Imaging Protocol: Axial computed tomography images with coronal and sagittal reformatted images were created and reviewed. Low dose screening protocol. COMPARISON: CT CT CHEST LUNG CANCER SCREEN from 07/02/2024 FINDINGS: Tracheobronchial tree: No bronchiectasis or mucus plugging. Mediastinum and Emely: No dominant adenopathy or fluid collection. Pulmonary parenchyma: No consolidation or dominant measurable mass. Minimal emphysematous changes. No significant interstitial changes. Lung Nodules: Tiny calcified granulomas again noted in right upper lobe. Additional 3 millimeter nodule right upper lobe is stable. Pleura: No effusion. No pneumothorax. Heart: The heart is not dilated. Moderate coronary artery calcifications are seen. No pericardial effusion. Aorta: Thoracic aorta non-dilated. Upper abdomen: Unremarkable. Bones: Unremarkable for age. Soft Tissues: Unremarkable. IMPRESSION: No suspicious pulmonary nodules. Lung RADS Cat 2 - Benign Appearance / Behavior: Nodules with a very low likelihood of becoming a clinically active cancer due to size or lack of growth Lung-RADS 1.0 CATEGORIES: Category 0 - Prior chest CT exam(s) being located for comparison. Category 1 - Annual screening in 12 months. No nodules or definitely benign nodules. Category 2 - Annual screening in 12 months. Benign appearance. Nodules with low likelihood of becoming active cancer. Category 3 - 6-month follow-up. Probably benign. Short-term follow-up suggested. Nodules with low likelihood of becoming active cancer. Category 4A - 3-month follow-up and CT/PET if >8 mm in size. Suspicious finding. Findings which require additional testing. Category 4B - Findings which require additional testing and tissue sampling. Category 4X - Category 3 or 4 nodules with additional features or imaging findings that increases the suspicion of malignancy. Modifier S- Potentially clinically significant findings (non lung cancer) RADIATION DOSE DELIVERED: 108.85mGy.cm Total DLP DATA REPOSITORY: All CT scans at this facility are submitted to the National Radiology Data Registry (NRDR) Dose Index Registry (DIR) with the [employer] (A[employer]). RADIATION OPTIMIZATION: All CT scans at this facility use at least one of these dose optimization techniques: automated exposure control; mA and/or kV adjustment per patient size (includes targeted exams where dose is matched to clinical indication); or iterative reconstruction.
== END ==
LOC: DI 09:08
PROVIDERS: PCP Internal Medicine; Visit Provider Internal Medicine
DX: Z87.891 Personal history of nicotine dependence (principal)
CPT/HCPCS: 71271